=== PATIENT | male | born 1955 | race Caucasian/White ===

== ENCOUNTER 2016-09-10 09:54 | Emergency (ER) | payer BC, OTHER | END 2016-09-10 11:44 | disposition home or self-care (01) | LOC: ER 09:54 | DX: R13.10 Dysphagia, unspecified (principal); Z79.02 Long term (current) use of antithrombotics/antiplatelets; Z79.899 Other long term (current) drug therapy | CPT/HCPCS: 70490; 99283-25 ==

== ENCOUNTER 2016-12-01 08:15 | Emergency (ER) | payer BC, OTHER ==
[2016-12-01 09:00] LABS: BASO % 0.1 % (0.2-1.2); EOS % 0.4 % (0.8-7.0); HEMATOCRIT 30.9 % (40-51); HEMOGLOBIN 10.2 g/dL (13.7-17.5); LYMPH # 0.9 10_X3_uL (1.3-3.6); LYMPH % 9.4 % (21.8-53.1); MEAN CORPUSCULAR HEMOGLOBIN 28.5 pg (27.0-33.0); MEAN CORPUSCULAR VOLUME 86.3 fL (79-92); MEAN PLATELET VOLUME 10.4 fl (7.5-11.5); MONO # 0.5 10_X3_uL (0.3-0.8); MONO % 5.1 % (5.3-12.2); PLATELET COUNT 144 x10_3/uL (163-337); RED BLOOD COUNT 3.58 x10_6/uL (4.6-6.1); RED CELL DISTRIBUTION WIDTH 16.6 % (11.6-14.4); WHITE BLOOD COUNT 9.4 x10_3/uL (4.2-9.1)
[2016-12-01 09:16] LABS: ALBUMIN 3.2 gm/dL (3.4-5.0); ALKALINE PHOSPHATASE 107 U/L (50-136); ALT/SGPT 16 U/L (7.53-40.17); AST/SGOT 26 U/L (6.66-35.34); BILIRUBIN,TOTAL 0.48 mg/dL (0.0-1.0); BLOOD UREA NITROGEN 22 mg/dL (7-18); CALCIUM 8.5 mg/dL (8.7-10.7); CARBON DIOXIDE 24 mmol/L (21-32); CREATININE 0.6 mg/dL (0.6-1.3); GLUCOSE,RANDOM 153 mg/dL (70-99); LIPASE 17 U/L (6.75-60.75); POTASSIUM 3.4 mmol/L (3.5-5.1); SODIUM 139 mmol/L (136-145); TOTAL PROTEIN 6.6 gm/dL (6.4-8.2)
== END 2016-12-01 12:15 | disposition home or self-care (01) ==
LOC: ER 08:15
PROVIDERS: Internal Medicine
DX: R11.10 Vomiting, unspecified (principal); R19.7 Diarrhea, unspecified; Z92.21 Personal history of antineoplastic chemotherapy; C16.9 Malignant neoplasm of stomach, unspecified; C79.89 Secondary malignant neoplasm of other specified sites; Z86.718 Personal history of other venous thrombosis and embolism
CPT/HCPCS: 36415; 80053; 83690; 85025; 96361; 96374; 99070; 99283-25

== ENCOUNTER 2016-12-22 12:32 | Observation (INO) | payer BC, OTHER ==
[~2016-12-22] VITALS: Ht 185.4 cm; Wt 66.0 kg
[2016-12-22 12:57] LABS: BASO % 0.3 % (0.2-1.2); EOS % 0.6 % (0.8-7.0); GRAN % 74.4 % (34.0-67.9); HEMATOCRIT 33.2 % (40-51); HEMOGLOBIN 11.2 g/dL (13.7-17.5); LYMPH # 1.2 10_X3_uL (1.3-3.6); LYMPH % 17.8 % (21.8-53.1); MEAN CORPUSCULAR HEMOGLOBIN 28.6 pg (27.0-33.0); MEAN CORPUSCULAR HGB CONC 33.7 g/dL (32.0-36.0); MEAN CORPUSCULAR VOLUME 84.7 fL (79-92); MEAN PLATELET VOLUME 10.6 fl (7.5-11.5); MONO # 0.5 10_X3_uL (0.3-0.8); MONO % 6.9 % (5.3-12.2); PLATELET COUNT 195 x10_3/uL (163-337); RED BLOOD COUNT 3.92 x10_6/uL (4.6-6.1); RED CELL DISTRIBUTION WIDTH 16.4 % (11.6-14.4); WHITE BLOOD COUNT 6.8 x10_3/uL (4.2-9.1)
[2016-12-22 13:26] LABS: ALBUMIN 3.8 gm/dL (3.4-5.0); ALKALINE PHOSPHATASE 126 U/L (50-136); ALT/SGPT 27 U/L (7.53-40.17); AST/SGOT 34 U/L (6.66-35.34); BILIRUBIN,TOTAL 0.37 mg/dL (0.0-1.0); CALCIUM 9.4 mg/dL (8.7-10.7); CARBON DIOXIDE 24 mmol/L (21-32); CREATININE 0.6 mg/dL (0.6-1.3); GLUCOSE,RANDOM 159 mg/dL (70-99); SODIUM 143 mmol/L (136-145); TOTAL PROTEIN 7.7 gm/dL (6.4-8.2)
[2016-12-22 13:35] LABS: BLOOD UREA NITROGEN 32 mg/dL (7-18)
[2016-12-23 06:42] LABS: CALCIUM 8.2 mg/dL (8.7-10.7); CARBON DIOXIDE 26 mmol/L (21-32); CREATININE 0.5 mg/dL (0.6-1.3); GLUCOSE,RANDOM 126 mg/dL (70-99); POTASSIUM 3.2 mmol/L (3.5-5.1); SODIUM 142 mmol/L (136-145)
[2016-12-23 06:46] LABS: BLOOD UREA NITROGEN 22 mg/dL (7-18)
[2016-12-23 07:10] LABS: HEMOGLOBIN 8.5 g/dL (13.7-17.5); MEAN CORPUSCULAR HEMOGLOBIN 28.1 pg (27.0-33.0); MEAN CORPUSCULAR HGB CONC 32.7 g/dL (32.0-36.0); MEAN CORPUSCULAR VOLUME 86.1 fL (79-92); MEAN PLATELET VOLUME 11.2 fl (7.5-11.5); RED BLOOD COUNT 3.02 x10_6/uL (4.6-6.1); RED CELL DISTRIBUTION WIDTH 16.5 % (11.6-14.4); WHITE BLOOD COUNT 5.8 x10_3/uL (4.2-9.1)
== END 2016-12-23 13:45 | disposition home or self-care (01) ==
LOC: ER 12:32 → MS 15:39
PROVIDERS: General Practice; ADMIT Family Medicine
DX: E86.0 Dehydration (principal); C16.9 Malignant neoplasm of stomach, unspecified; C78.6 Secondary malignant neoplasm of retroperitoneum and peritoneum; R11.2 Nausea with vomiting, unspecified; Z92.21 Personal history of antineoplastic chemotherapy; Z93.4 Other artificial openings of gastrointestinal tract status; R53.1 Weakness; Z83.3 Family history of diabetes mellitus; Z80.9 Family history of malignant neoplasm, unspecified; Z82.49 Family history of ischemic heart disease and other diseases of the circulatory system; Z79.01 Long term (current) use of anticoagulants; Z79.899 Other long term (current) drug therapy; E87.6 Hypokalemia; R91.8 Other nonspecific abnormal finding of lung field
CPT/HCPCS: 36415; 71010; 80048; 80053; 82140; 83605; 85025; 87040; 96361; 96374; 99070; 99284-25; G0378; J7040; Q9967